=== PATIENT | male | born 1950 | race Caucasian/White ===

== ENCOUNTER 2019-05-19 17:46 | Inpatient (IN) | payer MEDICARE, MEDICAID ==
[~2019-05-19] VITALS: Ht 172.7 cm; Wt 61.8 kg
[2019-05-19] MEDS ORDERED: SODIUM CHLORIDE 0.9% 1,000ML IVBOLUS ONE (18:30)
[2019-05-19] MEDS ORDERED: ONDANSETRON 2MG/ML, 2ML IVPush ONE (18:30)
[2019-05-19] MEDS ORDERED: SODIUM CHLORIDE FLUSH 10ML SYR IVF ONE (18:30)
[2019-05-19] MEDS ORDERED: ONDANSETRON 2MG/ML, 2ML ONE (18:40)
[2019-05-19] MEDS ORDERED: MORPHINE SULFATE 4 MG/ML, 1ML ONE ×2 (18:40→21:50)
[2019-05-19 18:47] LABS: BASOPHILS # (AUTO) 0.02 x10^3/uL (0-0.1); BASOPHILS % (AUTO) 0 % (0-1); EOSINOPHILS # (AUTO) 0.01 x10^3/uL (0-0.4); EOSINOPHILS % (AUTO) 0 % (1-7); LYMPHOCYTES % (AUTO) 11 % (22-44); MD NO; MEAN CORPUSCULAR HEMOGLOBIN 30.2 pg (27.5-34.5); MEAN CORPUSCULAR HGB CONC 33.4 g/dL (33.2-36.2); MEAN CORPUSCULAR VOLUME 90.4 fL (81-97); MONOCYTES # (AUTO) 0.61 x10^3/uL (0.2-0.8); MONOCYTES % (AUTO) 6 % (2-9); NEUTROPHILS # (AUTO) 9.02 x10^3/uL (1.8-6.8); NEUTROPHILS % (AUTO) 83 % (42-75); PLATELET COUNT 267 x10^3/uL (130-400); RED BLOOD COUNT 3.87 x10^6/uL (4.38-5.82); RED CELL DISTRIBUTION WIDTH 14.5 % (9.4-14.8)
[2019-05-19 18:52] LABS: ALANINE AMINOTRANSFERASE 9 U/L (12-78); ALBUMIN 3.2 g/dL (3.4-5.0); ANION GAP 8 mmol/L (5-15); CALCIUM 8.7 mg/dL (8.5-10.1); CHLORIDE 105 mmol/L (98-107); CREATININE 1.39 mg/dL (0.7-1.3)
[2019-05-19 18:55] LABS: ALKALINE PHOSPHATASE 144 U/L (45-117); BILIRUBIN,TOTAL 0.3 mg/dL (0.2-1.0); TOTAL PROTEIN 7.5 g/dL (6.4-8.2)
[2019-05-19] MEDS: MORPHINE SULFATE 4 MG/ML, 1ML IVPush PRN ×2 (19:26→21:51)
--- NOTE | 2019-05-19 19:32 | NUR ---
PIV PLACED. MEDS ADMIN PER APR. PT CONNECTED TO MONITORING. PT RESTING ON [employer] WATCHING TV. ARMEN.
--- NOTE | 2019-05-19 19:50 | NUR ---
PT AT CT
[2019-05-19] MEDS ORDERED: OMNIPAQUE 350 MG/ML, 100ML BOTTLE ONE (19:56)
--- NOTE | 2019-05-19 20:10 | NUR ---
PT PROVIDED URINE SAMPLE. UA COLLECTED AND TAKEN TO LAB.
[2019-05-19 20:17] LABS: MICROSCOPIC AUTO
[2019-05-19 20:20] LABS: CULTURE INDICATED? NO
--- NOTE | 2019-05-19 20:24 | NUR ---
ALL RESULTS ARE BACK AT THIS TIME. CHART UP FOR RECHECK.
--- NOTE | 2019-05-19 20:26 | NUR ---
GEORGE [place]: [phone] updated w/ permission from pt. as
[2019-05-19] MEDS ORDERED: METOPROLOL 1 MG/ML, 5ML IVPush STA (20:57)
[2019-05-19] MEDS ORDERED: NITROGLYCERIN OINT 2%, 1GM TP ONE ×2 (21:00→21:13)
[2019-05-19] MEDS ORDERED: NITROGLYCERIN SINGLE TAB 0.4 MG SL PRN (21:00)
[2019-05-19] MEDS ORDERED: METOPROLOL 1 MG/ML, 5ML ONE (21:14)
[2019-05-19 21:27] LABS: TROPONIN I < 0.015 ng/mL (0.000-0.045)
--- NOTE | 2019-05-19 21:34 | NUR ---
PT C/O CHEST PAIN/EPIGASTRIC PAIN. METOP PER MAR FOR BP. 1 NITRO TAB PER MAR. SISTER UPDATED, PT TBADM. SB SR ON MONITOR 59-64.
--- NOTE | 2019-05-19 21:59 | NUR ---
bp improved. holding nitro paste. enrico aware. morphine for pain. trop neg. admit orders. 11/29 chest/epigastric pain to 5/10 after nitro. call barber in reach. as
--- NOTE | 2019-05-19 22:42 | NUR ---
REPORT TO LUIZ CORBETT.
[2019-05-19 23:23] VITALS: BP 212/80
[2019-05-19] MEDS ORDERED: NITROGLYCERIN 0.4 MG BOTTLE (25 TABS) SL PRN (23:30)
[2019-05-19] MEDS ORDERED: ACETAMINOPHEN 325 MG TABLET PO PRN (23:30)
[2019-05-19] MEDS ORDERED: PANTOPRAZOLE 40MG TABLET PO SCH (23:30)
[2019-05-19] MEDS ORDERED: GABAPENTIN 300 MG CAPSULE PO PRN (23:30)
[2019-05-19] MEDS ORDERED: hydrALAzine 20 MG/ML, 1ML IVPush PRN (23:30)
[2019-05-19] MEDS ORDERED: hydrALAzine 20 MG/ML, 1ML IV ONE (23:30)
[2019-05-19] MEDS ORDERED: PROMETHAZINE 25 MG/ML, 1ML IM PRN (23:30)
[2019-05-19] MEDS ORDERED: TRAZODONE 50MG TABLET PO PRN (23:30)
[2019-05-20] MEDS: ATORVASTATIN 40 MG TABLET PO SCH ×2 (00:16→20:49)
[2019-05-20] MEDS: SODIUM CHLORIDE 0.9% 1,000 ML IV SCH ×2 (00:17→08:15)
[2019-05-20] MEDS: HEPARIN 5,000 UNITS/ML, 1ML SQ SCH ×3 (00:17→16:26)
[2019-05-20] MEDS: ONDANSETRON 2MG/ML, 2ML IVPush PRN ×2 (00:18→08:15)
[2019-05-20] MEDS: morphine SULFATE 10 MG/ML, 1ML IVPush PRN (00:19)
[2019-05-20 00:23] VITALS: BP 188/70
[2019-05-20] MEDS ORDERED: GABA300C10 PO (00:37)
[2019-05-20] MEDS ORDERED: LISI-424 PO (00:37)
[2019-05-20 01:29] VITALS: BP 190/68
[2019-05-20 02:49] LABS: BASOPHILS # (AUTO) 0.02 x10^3/uL (0-0.1); BASOPHILS % (AUTO) 0 % (0-1); EOSINOPHILS # (AUTO) 0.02 x10^3/uL (0-0.4); EOSINOPHILS % (AUTO) 0 % (1-7); LYMPHOCYTES # (AUTO) 1.67 x10^3/uL (1-3.4); LYMPHOCYTES % (AUTO) 14 % (22-44); MD NO; MEAN CORPUSCULAR VOLUME 91.1 fL (81-97); MEAN PLATELET VOLUME 9.4 fL (7.4-10.4); MONOCYTES % (AUTO) 6 % (2-9); NEUTROPHILS # (AUTO) 9.57 x10^3/uL (1.8-6.8); NEUTROPHILS % (AUTO) 80 % (42-75); PLATELET COUNT 257 x10^3/uL (130-400); RED BLOOD COUNT 4.06 x10^6/uL (4.38-5.82); RED CELL DISTRIBUTION WIDTH 14.7 % (9.4-14.8)
[2019-05-20] MEDS ORDERED: PANTOPRAZOLE 40 MG IV IVPush SCH (03:00)
[2019-05-20] MEDS ORDERED: LABETALOL 5MG/ML, 20ML IVPush ONE (03:00)
[2019-05-20 03:01] LABS: ANION GAP 8 mmol/L (5-15); CALCIUM 8.6 mg/dL (8.5-10.1); CHLORIDE 111 mmol/L (98-107); CHOLESTEROL, TOTAL 127 mg/dL (140-239); CREATININE 1.28 mg/dL (0.7-1.3)
[2019-05-20 03:04] LABS: CHOL/HDL RATIO 3.8; HDL CHOL % 26 % (26-37); HDL CHOLESTEROL (DIRECT) 33 mg/dL (40-60); LDL CHOLESTEROL,CALCULATED 71 mg/dL (54-169); LDL/HDL RATIO 2.2 (0.5-3.0); TRIGLYCERIDES 114 mg/dL (50-200); VLDL CHOLESTEROL 23 mg/dL (0-25)
[2019-05-20 03:18] LABS: TROPONIN I < 0.015 ng/mL (0.000-0.045)
[2019-05-20 03:48] VITALS: BP 141/59
[2019-05-20 07:05] VITALS: BP 184/82
[2019-05-20] MEDS: PANTOPRAZOLE 40MG TABLET PO SCH (07:30)
[2019-05-20] MEDS: ASPIRIN 81 MG TABLET EC PO SCH (08:15)
[2019-05-20 08:19] LABS: TROPONIN I 0.089 ng/mL (0.000-0.045)
[2019-05-20] MEDS ORDERED: LISINOPRIL 5 MG TABLET PO SCH (09:00)
[2019-05-20] MEDS ORDERED: REGADENOSON 0.4 MG/5 ML SYRINGE ONE (09:25)
[2019-05-20 11:47] LABS: TROPONIN I 0.101 ng/mL (0.000-0.045)
[2019-05-20 12:25] VITALS: BP 157/68
[2019-05-20] MEDS: LISINOPRIL 10 MG TABLET PO SCH ×2 (13:05→20:49)
[2019-05-20 14:47] LABS: TROPONIN I 0.137 ng/mL (0.000-0.045)
[2019-05-20 17:15] LABS: TROPONIN I 0.161 ng/mL (0.000-0.045)
[2019-05-20] MEDS ORDERED: LABETALOL 5MG/ML, 20ML IVPush PRN (17:30)
[2019-05-20 18:44] VITALS: BP 163/68
[2019-05-21 00:15] VITALS: BP 156/77
[2019-05-21] MEDS: HEPARIN 5,000 UNITS/ML, 1ML SQ SCH ×2 (00:16→08:01)
[2019-05-21 05:59] LABS: BASOPHILS # (AUTO) 0.04 x10^3/uL (0-0.1); BASOPHILS % (AUTO) 1 % (0-1); EOSINOPHILS # (AUTO) 0.13 x10^3/uL (0-0.4); EOSINOPHILS % (AUTO) 2 % (1-7); LYMPHOCYTES # (AUTO) 1.31 x10^3/uL (1-3.4); LYMPHOCYTES % (AUTO) 22 % (22-44); MD NO; MEAN CORPUSCULAR HEMOGLOBIN 30.3 pg (27.5-34.5); MEAN CORPUSCULAR HGB CONC 33.3 g/dL (33.2-36.2); MEAN CORPUSCULAR VOLUME 90.9 fL (81-97); MEAN PLATELET VOLUME 9.7 fL (7.4-10.4); MONOCYTES # (AUTO) 0.69 x10^3/uL (0.2-0.8); MONOCYTES % (AUTO) 12 % (2-9); NEUTROPHILS # (AUTO) 3.67 x10^3/uL (1.8-6.8); NEUTROPHILS % (AUTO) 63 % (42-75); PLATELET COUNT 187 x10^3/uL (130-400); RED BLOOD COUNT 3.57 x10^6/uL (4.38-5.82)
[2019-05-21 06:09] LABS: ANION GAP 5 mmol/L (5-15); CALCIUM 8.6 mg/dL (8.5-10.1); CHLORIDE 112 mmol/L (98-107)
[2019-05-21 06:13] LABS: TROPONIN I 0.119 ng/mL (0.000-0.045)
[2019-05-21] MEDS: PANTOPRAZOLE 40MG TABLET PO SCH ×4 (06:25→10:59)
[2019-05-21] MEDS: ASPIRIN 81 MG TABLET EC PO SCH (06:25)
[2019-05-21 06:58] VITALS: BP 181/76
[2019-05-21] MEDS ORDERED: METOPROLOL TARTRATE 25 MG TAB PO SCH (08:00)
[2019-05-21] MEDS: LISINOPRIL 10 MG TABLET PO SCH (08:01)
[2019-05-21] MEDS: morphine SULFATE 10 MG/ML, 1ML IVPush PRN (08:17)
[2019-05-21] MEDS ORDERED: SODIUM CHLORIDE 0.9% 1,000 ML IV SCH (08:30)
[2019-05-21 10:03] VITALS: BP 164/60
[2019-05-21] MEDS ORDERED: SUCRALFATE 1 GM/10 ML UDC PO SCH (11:00)
[2019-05-21] MEDS ORDERED: SUCR1ORA5 PO (12:35)
[2019-05-21] MEDS ORDERED: ASPI81TA45 PO (12:35)
[2019-05-21] MEDS ORDERED: PANT40TA5 PO (12:35)
[2019-05-21] MEDS ORDERED: METO25TA35 PO (12:35)
[2019-05-21] MEDS ORDERED: ATOR40TA78 PO (12:35)
[2019-05-21] MEDS ORDERED: LISI-167 PO (12:35)
[2019-05-21 13:25] VITALS: BP 170/77
== END 2019-05-21 14:32 | disposition home or self-care (01) | DRG 391 ==
LOC: ED 18:10 → EDIP 22:25 → 5SO 23:26
PROVIDERS: ADMIT Family Medicine; ATTEND Family Medicine
DX: K21.9 Gastro-esophageal reflux disease without esophagitis (principal); N17.0 Acute kidney failure with tubular necrosis; E43 Unspecified severe protein-calorie malnutrition; I16.1 Hypertensive emergency; I74.5 Embolism and thrombosis of iliac artery; K86.1 Other chronic pancreatitis; K80.20 Calculus of gallbladder without cholecystitis without obstruction; E86.0 Dehydration; F12.10 Cannabis abuse, uncomplicated; G62.9 Polyneuropathy, unspecified; I10 Essential (primary) hypertension; Z99.3 Dependence on wheelchair; Z91.19 Patient's noncompliance with other medical treatment and regimen; Z89.611 Acquired absence of right leg above knee; Z87.891 Personal history of nicotine dependence; Z68.20 Body mass index [BMI] 20.0-20.9, adult; Z89.511 Acquired absence of right leg below knee
CPT/HCPCS: 36415; 71045; 74177; 76700; 78452; 80048; 80053; 80061; 81001; 83690; 83735; 84100; 84484; 85025; 93005; 93017; 93306; 96361; 96374; 96375; G0378; J1644; J2405; J2785; Q9967; A9502; C9113; J0360; J2270; J7030

== ENCOUNTER → 2019-10-22 | Outpatient (CLI) | payer MEDICARE, MEDICAID ==
[~2019-10-22] MED LIST: ASPI81TA45 PO; ATOR40TA78 PO; GABA300C10 PO; LISI-167 PO; LISI-424 PO; METO25TA35 PO; PANT40TA6 PO; RIVA2.5T PO; SUCR1ORA5 PO; SUCR1TAB PO
== END | disposition home or self-care (01) ==
LOC: CVU 13:11
PROVIDERS: ATTEND Internal Medicine Cardiovascular Disease
DX: I65.23 Occlusion and stenosis of bilateral carotid arteries (principal); I10 Essential (primary) hypertension; E78.5 Hyperlipidemia, unspecified; Z87.891 Personal history of nicotine dependence
CPT/HCPCS: 93880